=== PATIENT | female | born 1940 | race Caucasian/White ===

== ENCOUNTER → 2017-01-24 | Outpatient (CLI) | payer MEDICARE, OTHER ==
[2016-09-17 17:00] VITALS: BP 122/64
[~2017-01-24] MED LIST: ACET500T68 PO; CALC-98 PO; CHOL100013 PO; CHOL500050 PO; CLOP75TA PO; CRESTOR10 MG PO; DOCU100C PO; FELO10TA PO; GUAI-297 PO; HYDR-971 PO; IPRA3AMP IH; MAGN400C PO; MAGN400T22 PO; MULT-658 PO; OLME40TA PO; OMEG10006 PO; PRED5TAB PO; TIOT4MIS3 IH; UBID100C12 PO
--- NOTE | 2017-01-24 14:57 | RAD ---
Indication pain and swelling. AP oblique and lateral views of the right wrist were obtained as well as a navicular view. There is probable bony demineralization. There is some widening between the lunate and the navicular bone compatible with ligamentous injury. Some cysts are noted in the lunate and capitate bone. Degenerative changes are seen involving the carpal bones on the radial side. Degenerative change is also seen at the first CMC joint. An acute finding is not apparent IMPRESSION: Degenerative and chronic changes. No acute findings
== END | disposition home or self-care (01) ==
LOC: DXRADRC 14:32
PROVIDERS: ATTEND Family Medicine
DX: M18.9 Osteoarthritis of first carpometacarpal joint, unspecified (principal); M85.68 Other cyst of bone, other site
CPT/HCPCS: 73110

== ENCOUNTER 2017-01-29 16:32 | Emergency (ER) | payer MEDICARE, OTHER ==
[2016-09-17 17:00] VITALS: BP 122/64
--- NOTE | 2017-01-29 20:20 | PHYS DOC ---
Past History Past Medical History: Bronchitis, COPD, Hypertension, Pneumonia, Vascular Disease, Other Past Surgical History: Other Smoking: Cigarettes Alcohol Use: None Drug Use: None Adult General Chief Complaint Chief Complaint: ALTERED MENTAL STATUS HPI HPI 76 y/o F presented to the ED with "unstable STEMI" according to paramedics. Upon arrival of the pt, the pt did not have a pulse and was not undergoing chest compressions. onset today location generalized duration constant no alleviating factors. ROS, FH, PMH, PSH and allergies unable to be obtained due to pts condition. EMR provides previously known info below. Review of Systems Review of Systems see above Allergies Allergies Allergies Coded Allergies Type Severity Reaction Last Updated Verified Penicillins Allergy Severe 09/17/16 Yes sulfamethoxazole Allergy Severe 09/17/16 Yes trimethoprim Allergy Severe 09/17/16 Yes iodine Allergy Intermediate Hives 09/17/16 Yes Physical Exam Physical Exam Constitutional: Pale, unresponsive HENT: atraumatic nonreactive pupils Eyes: nl conjunctiva Neck: no crepitance or jvd. no tracheal deviation Cardiovascular:no pulse Lungs & Thorax: no spontaneous respirations Abdomen: nontender Skin: pale Back: no evidence of trauma or patches Extremities: no pulse no sign of trauma Neurologic: unresponsive to verbal and painful stimuli Psychologic: no eye contact EKG EKG [] Radiology/Procedures Radiology/Procedures [] Course & Med Decision Making Course & Med Decision Making Pertinent Labs and Imaging studies reviewed. (See chart for details) []Pt was brought in reportedly "unstable stemi". pt was in cardiopulm arrest without pulse and lifeless on arrival. cpr initiated. family arrived and expressed DNR and DNI status. Alll resusitative efforts stopped and the pts wishes honored. See coding sheet for details. Dragon Disclaimer Dragon Disclaimer This chart was dictated in whole or in part using Voice Recognition software in a busy, high-work load, and often noisy Emergency Department environment. It may contain unintended and wholly unrecognized errors or omissions. Departure Departure: Impression: Primary Impression: Cardiac arrest Disposition: 20 Condition: Referrals: KATHY POSADAS (PCP) Critical Care Time Critical care time was [40] minutes exclusive of procedures. Time was spent discussing with family, direction of ACLS and code and documenting. LEATHA BELLO MD Jan 29, 2017 20:20
== END 2017-01-29 18:15 | disposition expired ==
LOC: ER 16:32
DX: I46.9 Cardiac arrest, cause unspecified (principal); J44.9 Chronic obstructive pulmonary disease, unspecified; I10 Essential (primary) hypertension; F17.210 Nicotine dependence, cigarettes, uncomplicated; Z88.0 Allergy status to penicillin; Z88.1 Allergy status to other antibiotic agents; Z91.041 Radiographic dye allergy status
CPT/HCPCS: 92950; 99291-25